=== PATIENT | female | born 1960 ===

== ENCOUNTER 2016-03-25 10:40 | Emergency (ER) | payer OTHER ==
--- NOTE | 2016-03-25 12:53 | DIAGNOSTIC IMAGING REPORT ---
PROCEDURE: XR CHEST 2 VIEW INDICATION: COUGH, initial encounter TECHNIQUE: PA and lateral view. COMPARISON: Chest x-ray 06/22/2009 FINDINGS: Small left basilar infiltrate/atelectasis. Right lung is clear. Cardiovascular structures are normal. Hiatal hernia. Bony thorax is unremarkable. IMPRESSION: 1. Small left basilar infiltrate/atelectasis 2. Hiatal hernia
--- NOTE | 2016-03-25 14:41 | ED NURSING NOTES ---
Clinical Report - Nurses [place] [address] [place] [address] 03/25/2016 10:41 [id number] Triage time 10:58. Acuity: LEVEL 3. Chief Complaint: COUGH. Alert. LAURIE COMA SCORE: Laurie Coma Scale: 15- eyes open spontaneously (4); best verbal response- oriented x 4 (5); best motor response- obeys commands (6). --11:33 Cami Nicholas R.N. 10:58 03/25/16. BP: 119/50. HR: 91. RR: 18. O2 saturation: 90% on room air. Temp: 97.3 F (oral). Pain level now: cannot qualify. --11:33 Cami Nicholas R.N. Weight: 113.3 kg estimated. Height/Length: 64 inches Estimated. BMI: 42.9. --11:12 Cami Nicholas R.N. Medications HydrOXYzine HCl Oral (Tablet 25 mg), as needed. --10:59 Cami Nicholas R.N. Lisinopril Oral (Tablet 2.5 mg) 2 tablets, daily. --13:39 Cami Nicholas R.N. Carvedilol 3.125 mg, 2x a day. --13:40 Cami Nicholas R.N. Eplerenone Oral (Tablet 25 mg) 1/2 tablet, daily. --13:40 Cami Nicholas R.N. Pantoprazole Sodium Oral 40 mg, daily. --13:41 Cami Nicholas R.N. Buprenorphine-Naloxon 8-2 mg, daily (dissolve 2 tabs). --13:43 Cami Nicholas R.N. PredniSONE Oral (Tablet 10 mg) 4 tabs, QOD. --13:44 Cami Nicholas R.N. Gabapentin Oral 100 mg, 3x a day. --13:45 Cami Nicholas R.N. Fluticasone Furoate Nasal 50 mcg, daily. --13:47 Cami Nicholas R.N. Citalopram Hydrobromide Oral (Tablet 20 mg), daily. --13:48 Cami Nicholas R.N. Capsaicin External, qid. --13:48 Cami Nicholas R.N. The following entry was struck by Cami Nicholas R.N., 13:50 (03/25/16) Reason - other(not on pharmacy list). <<STRICKEN ENTRY-- Albuterol Sulfate Oral. --10:59 Cami Nicholas R.N. --END STRIKE>> The following entry was struck by Cami Nicholas R.N., 13:50 (03/25/16) Reason - other(not on pharmacy list). <<STRICKEN ENTRY-- Advair HFA Inhalation. --10:59 Cami Nicholas R.N. --END STRIKE>> The following entry was struck by Cami Nicholas R.N., 13:50 (03/25/16) Reason - other(not on pharmacy list). <<STRICKEN ENTRY-- Vitamin D Oral. --10:59 Cami Nicholas R.N. --END STRIKE>> The following entry was struck by Cami Nicholas R.N., 13:49 (03/25/16) Reason - other. <<STRICKEN ENTRY-- Suboxone Sublingual 16 mg. --10:59 Cami Nicholas R.N. --END STRIKE>> The following entry was struck by Cami Nicholas R.N., 13:49 (03/25/16) Reason - other. <<STRICKEN ENTRY-- "joint pills". --10:59 Cami Nicholas R.N. --END STRIKE>> The following entry was struck and corrected by Cami Nicholas R.N., 13:48 (03/25/16) Reason for correction - other(correction). <<STRICKEN ENTRY-- HydrOXYzine HCl Oral. --10:59 Cami Nicholas R.N. --END STRIKE>> The following entry was struck by Cami Nicholas R.N., 13:46 (03/25/16) Reason - other. <<STRICKEN ENTRY-- Flonase Nasal. --10:59 Cami Nicholas R.N. --END STRIKE>> The following entry was struck by Cami Nicholas R.N., 13:45 (03/25/16) Reason - other. <<STRICKEN ENTRY-- CeleXA Oral. --10:59 Cami Nicholas R.N. --END STRIKE>> The following entry was struck by Cami Nicholas R.N., 13:42 (03/25/16) Reason - other. <<STRICKEN ENTRY-- Protonix Oral. --10:59 Cami Nicholas R.N. --END STRIKE>>. Allergies Amoxicillin. --10:59 Cami Nicholas R.N. History Arrived by private vehicle. Historian: patient. Accompanied by family. Primary physician (Agusto). Onset. (about 2 weeks). ( states she needs to go to detox but had to come to the hospital first). She has had a cough productive of thick, yellow sputum. SOCIAL HX: Former smoker (no). Alcohol use. (stopped but relapsed 2 weeks ago). FALL RISK ASSESSMENT: Fall risk assessment completed. No fall risk identified. FUNCTIONAL ASSESSMENT: Functional assessment: no impairments noted. LEARNING NEEDS ASSESSMENT: The learning needs assessment revealed no barriers. --11:33 Cami Nicholas R.N. PROBLEMS: Sebaceous Cyst. Asthma. Cholecystitis. Abdominal Pain. Diabetes Mellitus. Gallstone(s). Immunizations. LNMP - Last Normal Menstrual Period. GI Bleeding. Gastritis. Ulcers. Alcoholism. Pancreatitis. --11:01 Cami Nicholas R.N. ADDITIONAL SURGERIES: Appendectomy. L knee. Leg. Pancreatic surgery. --11:01 Cami Nicholas R.N. Assessment GENERAL / NEURO / PSYCH: The patient is awake and alert and is oriented and hostile. She appears anxious and agitated and has poor eye contact. ( crying out that she doesn't want to be here, coughed and spit the phlegm in her hand). RESPIRATORY: Mild respiratory distress. Cough productive of thick, yellow sputum. SKIN: Skin is warm and dry. --11:33 Cami Nicholas R.N. Interventions ID band on patient. To treatment room. --11:33 Cami Nicholas R.N. PHYSICAL ASSESSMENT 11:34 03/25/16. To room via wheelchair. Patient gowned. GENERAL / NEURO / PSYCH: The patient is awake and alert and is oriented and hostile. She appears anxious and agitated and has poor eye contact. RESPIRATORY: Mild respiratory distress. Cough productive of copious amounts of thick, yellow sputum. SKIN: Skin is warm and dry. --11:34 Cami Nicholas R.N. NURSING PROGRESS NOTES 11:34 03/25/16. Pulse oximeter and NIBP monitor placed on patient. Patient gowned. Head of bed elevated. Call light placed in reach. Side rails up x 1. Bed placed in lowest position. Brakes of bed on. --11:34 Cami Nicholas R.N. 11:34 caregiver is upset because the [place] told them to come to [facility] to get the pt medically cleared and then we would refer her to the detox place her in [place] and get her into it. --11:36 Cami Nicholas R.N. 13:55 03/25/2016 ALBUTEROL NEB W ATROVENT Neb TX Nebulizer 1 unit dose given. Given by the respiratory therapist. Allergies verified and confirmed 5 rights. --14:20 Ludin Fitch R.N. 14:15 03/25/2016 Site #1 started via IV in the left upper arm with an 20g angiocath, with aseptic technique and good blood return; one attempt. Blood drawn: rainbow set. Labeled in the presence of the patient and sent to the lab. Saline lock flushed with 10 mL saline. --14:32 Ludin Fitch R.N. 14:15 03/25/2016 Started bag #1 1000 mL IV Fluids IV NS (Saline); at 1000 mL/hr over 60 minute(s) via site #1. Allergies verified and confirmed 5 rights. IV patency established. IV site checked: no pain, redness, or swelling. IV flushed thoroughly pre- and post-medication administration. --14:34 Ludin Fitch R.N. 14:18 03/25/2016 Ceftriaxone IM 1 gm given. Given in the left ventral gluteus. Allergies verified and confirmed 5 rights. --14:18 Ludin Fitch R.N. 14:30 03/25/2016 Toradol IVP 30 mg given over 2 minute(s) via site #1. Allergies verified and confirmed 5 rights. IV patency established. IV site checked: no pain, redness, or swelling. IV flushed thoroughly pre- and post-medication administration. IVP given by RN. --14:40 Ludin Fitch R.N. 15:00 03/25/2016 Zofran (Ondansetron HCl) IVP 4 mg given over 2 minute(s) via site #1. Allergies verified and confirmed 5 rights. IV patency established. IV site checked: no pain, redness, or swelling. IV flushed thoroughly pre- and post-medication administration. IVP given by RN. --21:10 Ludin Fitch R.N. 15:03/25/2016 Site #1 removed upon discharge. Catheter intact. Manual pressure, bandaid and bandage applied. --21:12 Ludin Fitch R.N. 15:15 03/25/2016 IV Fluids IV NS Discontinued: bag #1 infused. Total amount infused: 1000 mL. IV patency established. IV site checked: no pain, redness, or swelling. IV flushed thoroughly. --21:11 Ludin Fitch R.N. 12:15 03/25/16. BP: 112/48. HR: 90. RR: 16. O2 saturation: 98% on room air. Pain level now: 06/26. --21:14 Ludin Fitch R.N. 13:30 03/25/16. BP: 98/59. HR: 100. RR: 16. O2 saturation: 97% on room air. --21:15 Ludin Fitch R.N. DISPOSITION / DISCHARGE 15:03/25/16. BP: 105/51. HR: 97. RR: 16. O2 saturation: 98% on room air. Temp: 98.9 F. Pain level now: 03/28. Additional comments: Generalized discomfort. --21:06 Ludin Fitch R.N. Departure time: 1525. --21:06 Ludin Fitch R.N. 15:25. Condition at departure: improved. No learning barriers present. Discharge instructions provided and reviewed with the patient. Reviewed medication(s) (prescription given to pt). Reviewed referral to family practice for followup. Patient and family verbalized understanding. Written instructions provided in Turkmen. The patient was discharged by the nurse practitioner. She was discharged home and accompanied by fire suppression captain. She left the Emergency Department ambulatory and via private vehicle. Driver'S License Examiner driving. --21:07 Ludin Fitch R.N. Locked/Released at 03/25/2016 21:16 by Ludin Fitch R.N.
--- NOTE | 2016-03-25 14:41 | ED CLINICAL REPORT ---
Clinical Report - Physicians/Mid Levels [facility] [address] [place] [address] 03/25/2016 10:41 [id number] Time Seen: 12:16; initial patient contact, initial documentation, patient care assumed. Arrived- By private vehicle. Historian- patient. HISTORY OF PRESENT ILLNESS Chief Complaint: COUGH. This started about 2 - 3 weeks ago and is still present. The illness is described as moderate. The patient has had thick, yellow sputum, a cough and mild difficulty breathing . The patient has also had wheezing. No fever, sore throat, nasal congestion or discharge or sinus drainage. Additional history - No known contact with a sick individual. No recent travel. Similar symptoms previously: Recent medical care: The patient was seen recently in a clinic. ( went to [facility], having issues the last few with bad asthma, not getting better). REVIEW OF SYSTEMS No vomiting or diarrhea. All systems otherwise negative, except as recorded above. PAST HISTORY See nurses notes. PROBLEMS: Sebaceous Cyst. Asthma. Cholecystitis. Abdominal Pain. Diabetes Mellitus. Gallstone(s). Immunizations. LNMP - Last Normal Menstrual Period. GI Bleeding. Gastritis. Ulcers. Alcoholism. Pancreatitis. --11:01 Cami Nicholas R.N. ADDITIONAL SURGERIES: Appendectomy. L knee. Leg. Pancreatic surgery. --11:01 Cami Nicholas R.N. SOCIAL HISTORY Smoker- current status unknown. Alcohol use. Patient is a longstanding alcoholic. Not exposed to second-hand smoke at home. No recent travel. Is a local resident. FAMILY HISTORY Negative. ADDITIONAL NOTES The nursing notes have been reviewed with agreement regarding the chief complaint, HPI, ROS, PMH and patient medications and allergies. PHYSICAL EXAM Vital Signs: 03/25/2016 10:58 BP: 119/50. HR: 91. RR: 18. O2 saturation: 90%. Temp: 97.3 F. Have been reviewed as abnormal and appear to be correct. Heart rate normal. Respiratory rate normal. Temperature normal. Oxygen saturation low. Appearance: Alert. No acute distress. (pt under the influence). Eyes: Pupils equal, round and reactive to light. Eyes normal inspection. ENT: Ears normal. Nose normal. Pharynx normal. Uvula midline. Neck: Normal inspection. Neck supple. CVS: Normal heart rate and rhythm. Heart sounds normal. Pulses normal. Respiratory: No respiratory distress. Breath sounds abnormal. Expiratory and inspiratory bilateral wheezes diffusely. Mild rales present in the bases bilaterally. Back: Normal inspection. Skin: Skin warm and dry. Normal skin color. No rash. Normal skin turgor. Extremities: Extremities exhibit normal ROM. No lower extremity edema. Neuro: Oriented X 3. No motor deficit. No sensory deficit. LABS, X-RAYS, AND EKG Chest X-ray: Normal Chest X-Ray. (IMPRESSION: 1. Small left basilar infiltrate/atelectasis 2. Hiatal hernia Electronically Final signed by:Caleb Castañeda MD 03/25/2016 12:52:58 PM). Interpretation time: 12:59. Laboratory Tests: CBC w Diff: (RAISA: 03/25/2016 13:20) ( MsgRcvd 03/25/2016 13:32) Final results Test Result Flag Units (Reference) WHITE BLOOD COUNT 12.4 H K/uL (4.5-11.5) RED BLOOD COUNT 3.78 L M/uL (4.00-5.20) HEMOGLOBIN 11.0 L gm/dL (12.0-16.0) HEMATOCRIT 33.2 L % (36.0-46.0) MEAN CELL VOLUME 88 fL (80-100) MEAN CORPUSCULAR HGB 29 pg (26-34) MEAN CORPUSCULAR HGB CONC 33 g/dL (31-37) RED CELL DISTRIBUTION WIDTH 16.4 H % (11.6-14.8) PLATELET COUNT 354 K/uL (150-400) NEUTROPHIL % 81.0 H % (50-75) LYMPH % 15.2 L % (25-40) MONO % 3.1 % (3-14) EOSINOPHIL % 0.3 % (0-4) BASOPHIL % 0.4 % (0-2) BMP: (RAISA: 03/25/2016 13:20) ( MsgRcvd 03/25/2016 13:45) Final results Test Result Flag Units (Reference) GLUCOSE 230 H mg/dL (70-110) BUN 6 L mg/dL (7-18) CREATININE 1.0 mg/dL (0.6-1.3) Estimated GFR >60 mL/min Estimated GFR- >60 mL/min Note: Persistent reduction over 3 months in eGFR<60 mL/min/1.73 m2 defines CKD. Patients with eGFR values>=60 mL/min/1.73 m2 may also have CKD if evidence ofpersistent proteinuria. Additional information may be foundat www.[email or web address].org. SODIUM 129 L mmol/L (136-145) POTASSIUM 4.0 mmol/L (3.5-5.1) CHLORIDE 97 L mmol/L (98-107) CARBON DIOXIDE 23 mmol/L (21-32) CALCIUM 7.8 L mg/dL (8.5-10.1) ETHYL ALCOHOL 258 H mg/dL (3-10) . PROGRESS AND PROCEDURES Course of Care: 1320. neb tx done, B breath sounds with mild insp wheezes heard thruout, PO96%ra lab at bedside 14:09 03/25/16. stopped in hallway twice with family qtns, just stopped again stating pt is going to leave and she has not gotten her shot yet. Differential Diagnosis: Other possible considerations: uri, viral illness, bronchitis, pneumonia, copd, asthma. Above considerations are based on history and physical exam. Differential diagnosis was discussed with patient. Disposition: Discharged home in good and improved condition (14:41). Condition: good and stable. CLINICAL IMPRESSION Bacterial pneumonia. Vital signs recorded and reviewed; empiric antibiotics given in the ED and prescribed. No hypoxemia, respiratory failure or sepsis. Uncomplicated alcohol intoxication with alcohol dependence. Mild hyponatremia INSTRUCTIONS Alternate Tylenol (Acetaminophen) and Motrin (Ibuprofen) for fever, temperature greater than 101 degrees orally. Take according to label instructions. Drink plenty of fluids for the next 24 hours until better. Warnings: GENERAL WARNINGS: Return or contact your physician immediately if your condition worsens or changes unexpectedly, if not improving as expected, or if other problems arise. Specifically return if problem worsens. Prescription Medications: Zithromax 250 mg tablets: take 2 orally today, followed by 1 daily for the next 4 days. No refills. Substitution is permissible. Follow-up: Follow up with your doctor in about three days even if well. Call for an appointment. Summary of care provided to patient. Understanding of the discharge instructions verbalized by patient. (Electronically signed by Gabby Taveras A.R.N.P. 03/25/2016 23:57)
--- NOTE | 2016-03-25 14:41 | ED NURSING NOTES ---
Clinical Report - Nurses [place] [address] [place] [address] 03/25/2016 10:41 [id number] Triage time 10:58. Acuity: LEVEL 3. Chief Complaint: COUGH. Alert. LAURIE COMA SCORE: Laurie Coma Scale: 15- eyes open spontaneously (4); best verbal response- oriented x 4 (5); best motor response- obeys commands (6). --11:33 Cami Nicholas R.N. 10:58 03/25/16. BP: 119/50. HR: 91. RR: 18. O2 saturation: 90% on room air. Temp: 97.3 F (oral). Pain level now: cannot qualify. --11:33 Cami Nicholas R.N. Weight: 113.3 kg estimated. Height/Length: 64 inches Estimated. BMI: 42.9. --11:12 Cami Nicholas R.N. Medications HydrOXYzine HCl Oral (Tablet 25 mg), as needed. --10:59 Cami Nicholas R.N. Lisinopril Oral (Tablet 2.5 mg) 2 tablets, daily. --13:39 Cami Nicholas R.N. Carvedilol 3.125 mg, 2x a day. --13:40 Cami Nicholas R.N. Eplerenone Oral (Tablet 25 mg) 1/2 tablet, daily. --13:40 Cami Nicholas R.N. Pantoprazole Sodium Oral 40 mg, daily. --13:41 Cami Nicholas R.N. Buprenorphine-Naloxon 8-2 mg, daily (dissolve 2 tabs). --13:43 Cami Nicholas R.N. PredniSONE Oral (Tablet 10 mg) 4 tabs, QOD. --13:44 Cami Nicholas R.N. Gabapentin Oral 100 mg, 3x a day. --13:45 Cami Nicholas R.N. Fluticasone Furoate Nasal 50 mcg, daily. --13:47 Cami Nicholas R.N. Citalopram Hydrobromide Oral (Tablet 20 mg), daily. --13:48 Cami Nicholas R.N. Capsaicin External, qid. --13:48 Cami Nicholas R.N. The following entry was struck by Cami Nicholas R.N., 13:50 (03/25/16) Reason - other(not on pharmacy list). <<STRICKEN ENTRY-- Albuterol Sulfate Oral. --10:59 Cami Nicholas R.N. --END STRIKE>> The following entry was struck by Cami Nicholas R.N., 13:50 (03/25/16) Reason - other(not on pharmacy list). <<STRICKEN ENTRY-- Advair HFA Inhalation. --10:59 Cami Nicholas R.N. --END STRIKE>> The following entry was struck by Cami Nicholas R.N., 13:50 (03/25/16) Reason - other(not on pharmacy list). <<STRICKEN ENTRY-- Vitamin D Oral. --10:59 Cami Nicholas R.N. --END STRIKE>> The following entry was struck by Cami Nicholas R.N., 13:49 (03/25/16) Reason - other. <<STRICKEN ENTRY-- Suboxone Sublingual 16 mg. --10:59 Cami Nicholas R.N. --END STRIKE>> The following entry was struck by Cami Nicholas R.N., 13:49 (03/25/16) Reason - other. <<STRICKEN ENTRY-- "joint pills". --10:59 Cami Nicholas R.N. --END STRIKE>> The following entry was struck and corrected by Cami Nicholas R.N., 13:48 (03/25/16) Reason for correction - other(correction). <<STRICKEN ENTRY-- HydrOXYzine HCl Oral. --10:59 Cami Nicholas R.N. --END STRIKE>> The following entry was struck by Cami Nicholas R.N., 13:46 (03/25/16) Reason - other. <<STRICKEN ENTRY-- Flonase Nasal. --10:59 Cami Nicholas R.N. --END STRIKE>> The following entry was struck by Cami Nicholas R.N., 13:45 (03/25/16) Reason - other. <<STRICKEN ENTRY-- CeleXA Oral. --10:59 Cami Nicholas R.N. --END STRIKE>> The following entry was struck by Cami Nicholas R.N., 13:42 (03/25/16) Reason - other. <<STRICKEN ENTRY-- Protonix Oral. --10:59 Cami Nicholas R.N. --END STRIKE>>. Allergies Amoxicillin. --10:59 Cami Nicholas R.N. History Arrived by private vehicle. Historian: patient. Accompanied by family. Primary physician (Agusto). Onset. (about 2 weeks). ( states she needs to go to detox but had to come to the hospital first). She has had a cough productive of thick, yellow sputum. SOCIAL HX: Former smoker (no). Alcohol use. (stopped but relapsed 2 weeks ago). FALL RISK ASSESSMENT: Fall risk assessment completed. No fall risk identified. FUNCTIONAL ASSESSMENT: Functional assessment: no impairments noted. LEARNING NEEDS ASSESSMENT: The learning needs assessment revealed no barriers. --11:33 Cami Nicholas R.N. PROBLEMS: Sebaceous Cyst. Asthma. Cholecystitis. Abdominal Pain. Diabetes Mellitus. Gallstone(s). Immunizations. LNMP - Last Normal Menstrual Period. GI Bleeding. Gastritis. Ulcers. Alcoholism. Pancreatitis. --11:01 Cami Nicholas R.N. ADDITIONAL SURGERIES: Appendectomy. L knee. Leg. Pancreatic surgery. --11:01 Cami Nicholas R.N. Assessment GENERAL / NEURO / PSYCH: The patient is awake and alert and is oriented and hostile. She appears anxious and agitated and has poor eye contact. ( crying out that she doesn't want to be here, coughed and spit the phlegm in her hand). RESPIRATORY: Mild respiratory distress. Cough productive of thick, yellow sputum. SKIN: Skin is warm and dry. --11:33 Cami Nicholas R.N. Interventions ID band on patient. To treatment room. --11:33 aCmi Nicholas R.N. PHYSICAL ASSESSMENT 11:34 03/25/16. To room via wheelchair. Patient gowned. GENERAL / NEURO / PSYCH: The patient is awake and alert and is oriented and hostile. She appears anxious and agitated and has poor eye contact. RESPIRATORY: Mild respiratory distress. Cough productive of copious amounts of thick, yellow sputum. SKIN: Skin is warm and dry. --11:34 Cami Nicholas R.N. NURSING PROGRESS NOTES 11:34 03/25/16. Pulse oximeter and NIBP monitor placed on patient. Patient gowned. Head of bed elevated. Call light placed in reach. Side rails up x 1. Bed placed in lowest position. Brakes of bed on. --11:34 Cami Nicholas R.N. 11:34 caregiver is upset because the kashia told them to come to [facility] to get the pt medically cleared and then we would refer her to the detox place her in [place] and get her into it. --11:36 Cami Nicholas R.N. 13:55 03/25/2016 ALBUTEROL NEB W ATROVENT Neb TX Nebulizer 1 unit dose given. Given by the respiratory therapist. Allergies verified and confirmed 5 rights. --14:20 Ludin Fitch R.N. 14:15 03/25/2016 Site #1 started via IV in the left upper arm with an 20g angiocath, with aseptic technique and good blood return; one attempt. Blood drawn: rainbow set. Labeled in the presence of the patient and sent to the lab. Saline lock flushed with 10 mL saline. --14:32 Ludin Fitch R.N. 14:15 03/25/2016 Started bag #1 1000 mL IV Fluids IV NS (Saline); at 1000 mL/hr over 60 minute(s) via site #1. Allergies verified and confirmed 5 rights. IV patency established. IV site checked: no pain, redness, or swelling. IV flushed thoroughly pre- and post-medication administration. --14:34 Ludin Fitch R.N. 14:18 03/25/2016 Ceftriaxone IM 1 gm given. Given in the left ventral gluteus. Allergies verified and confirmed 5 rights. --14:18 Ludin Fitch R.N. 14:30 03/25/2016 Toradol IVP 30 mg given over 2 minute(s) via site #1. Allergies verified and confirmed 5 rights. IV patency established. IV site checked: no pain, redness, or swelling. IV flushed thoroughly pre- and post-medication administration. IVP given by RN. --14:40 Ludin Fitch R.N. 15:00 03/25/2016 Zofran (Ondansetron HCl) IVP 4 mg given over 2 minute(s) via site #1. Allergies verified and confirmed 5 rights. IV patency established. IV site checked: no pain, redness, or swelling. IV flushed thoroughly pre- and post-medication administration. IVP given by RN. --21:10 Ludin Fitch R.N. 15:03/25/2016 Site #1 removed upon discharge. Catheter intact. Manual pressure, bandaid and bandage applied. --21:12 Ludin Fitch R.N. 15:15 03/25/2016 IV Fluids IV NS Discontinued: bag #1 infused. Total amount infused: 1000 mL. IV patency established. IV site checked: no pain, redness, or swelling. IV flushed thoroughly. --21:11 Ludin Fitch R.N. 12:15 03/25/16. BP: 112/48. HR: 90. RR: 16. O2 saturation: 98% on room air. Pain level now: 06/26. --21:14 Ludin Fitch R.N. 13:30 03/25/16. BP: 98/59. HR: 100. RR: 16. O2 saturation: 97% on room air. --21:15 Ludin Fitch R.N. DISPOSITION / DISCHARGE 15:03/25/16. BP: 105/51. HR: 97. RR: 16. O2 saturation: 98% on room air. Temp: 98.9 F. Pain level now: 03/28. Additional comments: Generalized discomfort. --21:06 Ludin Fitch R.N. Departure time: 1525. --21:06 Ludin Fitch R.N. 15:25. Condition at departure: improved. No learning barriers present. Discharge instructions provided and reviewed with the patient. Reviewed medication(s) (prescription given to pt). Reviewed referral to family practice for followup. Patient and family verbalized understanding. Written instructions provided in Telugu. The patient was discharged by the nurse practitioner. She was discharged home and accompanied by transfer controller. She left the Emergency Department ambulatory and via private vehicle. [employer] driving. --21:07 Ludin Fitch R.N. Locked/Released at 03/25/2016 21:16 by Ludin Fitch R.N.
--- NOTE | 2016-03-25 14:41 | ED ORDER SUMMARY ---
..... Patient: CLAY SALOMON OrderSheet [facility] VisitID: [id number] [place] [address] 55y, F Registration Date/Time: 03/25/2016 ORDER SHEET Weight: 113.3 kg (estimated) Allergies: Amoxicillin GENERAL ORDERS: Chest 2V Urgent (12:31 03/25/2016 HBivens A.R.N.P.) (Ack 12:33 TBergley) (13:10 Cheryl) CBC w Diff Urgent (12:03/25/2016 HBivens A.R.N.P.) (Ack 12:33 TBergley) (13:21 TBergley) BMP Urgent (12:03/25/2016 HBivens A.R.N.P.) (Ack 12:33 TBergley) (13:21 TBergley) Ethyl Alcohol Urgent (12:03/25/2016 HBivens A.R.N.P.) (Ack 12:33 TBergley) (13:21 TBergley) MEDICATION ORDERS: Albuterol Neb w Atrovent 1 unit dose (NOW) (12:31 03/25/2016 HBivens A.R.N.P.) (14:20 JRomanelli R.N.) Ceftriaxone IM 1 gm (NOW) (13:03 03/25/2016 HBivens A.R.N.P.) (14:18 JRomanelli R.N.) IV FLUIDS: IV NS : initial bolus 1000 mL (1000 mL/hr), then none - for X1 (NOW) (13:50 03/25/2016 HBivens A.R.N.P.) (14:34 JRomanelli R.N.) IV Saline Lock (13:50 03/25/2016 HBivens A.R.N.P.) (14:32 JRomanelli R.N.) Toradol IV 30 mg (NOW) (14:39 03/25/2016 JRomanelli R.N. verbal order read back to HBivens A.R.N.P.) (14:40 JRomanelli R.N.) Zofran IV 4 mg (NOW) (21:08 03/25/2016 Paula Treadwell verbal order read back to Julia PeckR.NAdrielPAdriel) (21:10 Paula Treadwell) ORDER SHEET NOTES: [Electronically signed by Ludin Fitch R.N. (21:16 03/25/2016)] [Electronically signed by Gabby TaverasNAdrielPAdriel (23:57 03/25/2016)] [Electronically locked/signed by Ludin Fitch R.N. (21:16 03/25/2016)]
--- NOTE | 2016-03-25 14:41 | ED ORDER SUMMARY ---
..... Patient: CLAY SALOMON OrderSheet [facility] VisitID: [id number] [place] [address] 55y, F Registration Date/Time: 03/25/2016 ORDER SHEET Weight: 113.3 kg (estimated) Allergies: Amoxicillin GENERAL ORDERS: Chest 2V Urgent (12:31 03/25/2016 HBivens A.R.N.P.) (Ack 12:33 TBergley) (13:10 Cheryl) CBC w Diff Urgent (12:03/25/2016 HBivens A.R.N.P.) (Ack 12:33 TBergley) (13:21 TBergley) BMP Urgent (12:03/25/2016 HBivens A.R.N.P.) (Ack 12:33 TBergley) (13:21 TBergley) Ethyl Alcohol Urgent (12:03/25/2016 HBivens A.R.N.P.) (Ack 12:33 TBergley) (13:21 TBergley) MEDICATION ORDERS: Albuterol Neb w Atrovent 1 unit dose (NOW) (12:31 03/25/2016 HBivens A.R.N.P.) (14:20 JRomanelli R.N.) Ceftriaxone IM 1 gm (NOW) (13:03 03/25/2016 HBivens A.R.N.P.) (14:18 JRomanelli R.N.) IV FLUIDS: IV NS : initial bolus 1000 mL (1000 mL/hr), then none - for X1 (NOW) (13:50 03/25/2016 HBivens A.R.N.P.) (14:34 JRomanelli R.N.) IV Saline Lock (13:50 03/25/2016 HBivens A.R.N.P.) (14:32 JRomanelli R.N.) Toradol IV 30 mg (NOW) (14:39 03/25/2016 JRomanelli R.N. verbal order read back to HBivens A.R.N.P.) (14:40 JRomanelli R.N.) Zofran IV 4 mg (NOW) (21:08 03/25/2016 Paula Treadwell verbal order read back to Julia PeckR.NAdrielPAdriel) (21:10 Paula Treadwell) ORDER SHEET NOTES: [Electronically signed by Ludin Fitch R.N. (21:16 03/25/2016)] [Electronically signed by Gabby TaverasNAdrielPAdriel (23:57 03/25/2016)] [Electronically locked/signed by Ludin Fitch R.N. (21:16 03/25/2016)]
--- NOTE | 2016-03-25 23:58 | ED MED RECONCILIATION SUMMARY ---
Patient: CLAY SALOMON Medication Reconciliation Report [facility] VisitID: [id number] [address] [place] [address] 55y, F Registration Date/Time: 03/25/2016 Weight: 113.3 kg Height/Length: 64 in. BMI: 42.9 ALLERGIES: Amoxicillin The patient's Home Medications are listed below: THE FOLLOWING MEDICATIONS NEED TO BE RECONCILED: Buprenorphine-Naloxon 8-2 mg, daily, dissolve 2 tabs Capsaicin External, qid Carvedilol 3.125 mg, 2x a day Citalopram Hydrobromide Oral (20 mg), daily Eplerenone Oral (25 mg) 1/2 tablet, daily Fluticasone Furoate Nasal 50 mcg, daily Gabapentin Oral 100 mg, 3x a day HydrOXYzine HCl Oral (25 mg) Lisinopril Oral (2.5 mg) 2 tablets, daily Pantoprazole Sodium Oral 40 mg, daily PredniSONE Oral (10 mg) 4 tabs, QOD The source(s) of the original Home Medication information: Not obtained. The following Medications were given to the patient in the Emergency Department: Ceftriaxone [IM] IM 1 gm, administered: 03/25/2016 2:18:00 PM ALBUTEROL NEB W ATROVENT Neb TX 1 unit dose, administered: 03/25/2016 1:55:00 PM IV NS IV Fluids bolus 0, then 1000 mL/hr, administered: 03/25/2016 2:15:00 PM Toradol [IVP] IVP 30 mg, administered: 03/25/2016 2:30:00 PM Zofran [IVP] IVP 4 mg, administered: 03/25/2016 3:00:00 PM The following Medications were prescribed to the patient: Zithromax 250 mg tablets: take 2 orally today, followed by 1 daily for the next 4 days. No refills. Substitution is permissible. -- Gabby Taveras A.R.N.P.
--- NOTE | 2016-03-25 23:58 | ED MED RECONCILIATION SUMMARY ---
Patient: CLAY SALOMON Medication Reconciliation Report [facility] VisitID: [id number] [address] [place] [address] 55y, F Registration Date/Time: 03/25/2016 Weight: 113.3 kg Height/Length: 64 in. BMI: 42.9 ALLERGIES: Amoxicillin The patient's Home Medications are listed below: THE FOLLOWING MEDICATIONS NEED TO BE RECONCILED: Buprenorphine-Naloxon 8-2 mg, daily, dissolve 2 tabs Capsaicin External, qid Carvedilol 3.125 mg, 2x a day Citalopram Hydrobromide Oral (20 mg), daily Eplerenone Oral (25 mg) 1/2 tablet, daily Fluticasone Furoate Nasal 50 mcg, daily Gabapentin Oral 100 mg, 3x a day HydrOXYzine HCl Oral (25 mg) Lisinopril Oral (2.5 mg) 2 tablets, daily Pantoprazole Sodium Oral 40 mg, daily PredniSONE Oral (10 mg) 4 tabs, QOD The source(s) of the original Home Medication information: Not obtained. The following Medications were given to the patient in the Emergency Department: Ceftriaxone [IM] IM 1 gm, administered: 03/25/2016 2:18:00 PM ALBUTEROL NEB W ATROVENT Neb TX 1 unit dose, administered: 03/25/2016 1:55:00 PM IV NS IV Fluids bolus 0, then 1000 mL/hr, administered: 03/25/2016 2:15:00 PM Toradol [IVP] IVP 30 mg, administered: 03/25/2016 2:30:00 PM Zofran [IVP] IVP 4 mg, administered: 03/25/2016 3:00:00 PM The following Medications were prescribed to the patient: Zithromax 250 mg tablets: take 2 orally today, followed by 1 daily for the next 4 days. No refills. Substitution is permissible. -- Gabby Taveras A.R.N.P.
--- NOTE | 2016-03-25 23:58 | ED MAR SUMMARY ---
..... Medication Administration Record [facility] [address] [place] [address] Patient: CLAY SALOMON Visit ID: [id number] 55y, F Weight: 113.3 kg Height/Length: 64 in BMI: 42.9 ALLERGIES: Amoxicillin Given 13:55 03/25/2016 Ludin Fitch R.N. Medication Administered: ALBUTEROL NEB W ATROVENT, Dose: 1 unit dose Nebulizer Neb TX. Medication Ordered: Albuterol Neb w Atrovent 1 unit dose (NOW). Start 14:15 03/25/2016 Ludin Fitch R.N., Stop 15:15 03/25/2016 Ludin Fitch R.N. Medication Administered: IV NS (SALINE), Dose: IV Fluids over 60 minute(s), Rate: 1000 mL/hr, Dispensed: 1000 mL bag, Site: #1 left upper arm. Medication Ordered: IV NS : initial bolus 1000 mL (1000 mL/hr), then none - for X1 (NOW). Given 14:18 03/25/2016 Ludin Fitch R.N. Medication Administered: CEFTRIAXONE [IM], Dose: 1 gm IM. Medication Ordered: Ceftriaxone IM 1 gm (NOW). Given 14:30 03/25/2016 Ludin Fitch R.N. Medication Administered: TORADOL [IVP], Dose: 30 mg IVP over 2 minute(s), Site: #1 left upper arm. Medication Ordered: Toradol IV 30 mg (NOW). Given 15:00 03/25/2016 Ludin Fitch R.N. Medication Administered: ZOFRAN [IVP] (ONDANSETRON HCL), Dose: 4 mg IVP over 2 minute(s), Site: #1 left upper arm. Medication Ordered: Zofran IV 4 mg (NOW).
--- NOTE | 2016-03-25 23:58 | ED DISCHARGE INSTRUCTIONS ---
Patient: CLAY SALOMON General Instructions [facility] VisitID: [id number] [place] [address] 55y, F Registration Date/Time: 03/25/2016 Bacterial pneumonia. Vital signs recorded and reviewed; empiric antibiotics given in the ED and prescribed. No hypoxemia, respiratory failure or sepsis. Uncomplicated alcohol intoxication with alcohol dependence. Mild hyponatremia INSTRUCTIONS Alternate Tylenol (Acetaminophen) and Motrin (Ibuprofen) for fever, temperature greater than 101 degrees orally. Take according to label instructions. Drink plenty of fluids for the next 24 hours until better. Warnings: GENERAL WARNINGS: Return or contact your physician immediately if your condition worsens or changes unexpectedly, if not improving as expected, or if other problems arise. Specifically return if problem worsens. Prescription Medications: Zithromax 250 mg tablets: take 2 orally today, followed by 1 daily for the next 4 days. No refills. Substitution is permissible. Follow-up: Follow up with your doctor in about three days even if well. Call for an appointment. Summary of care provided to patient. Understanding of the discharge instructions verbalized by patient. ADDITIONAL INFORMATION Pneumonia (Adult) Pneumonia is an infection deep within the lung, in the small air sacs (alveoli). It may be due to a virus or bacteria and is usually treated with an antibiotic. Severe cases require treatment in the hospital. Milder cases can be treated at home. Symptoms usually start to improve during the first2 days of treatment. Home Care: Rest at home for the first 23 days or until you feel stronger. When resuming activity, dont let yourself become overly tired. Avoid exposure to cigarette smoke (yours or others). You may use acetaminophen (Tylenol) or ibuprofen (Motrin, Advil) to control fever or pain, unless another medicine was prescribed. [NOTE: If you have chronic liver or kidney disease or ever had a stomach ulcer or GI bleeding, talk with your doctor before using these medicines.] (Aspirin should never be used in anyone under 18 years of age who is ill with a fever. It may cause severe liver damage.) Your appetite may be poor so a light diet is fine. Keep well hydrated by drinking 68 glasses of fluids per day (water, sport drinks such as Gatorade, sodas without caffeine, juices, tea, soup, etc.). This will help loosen secretions in the lung, making it easier for you to cough up the phlegm (sputum). If you also have heart or kidney disease, check with your doctor before you drink extra amounts of fluids. Finish all antibiotic medicine prescribed, even if you are feeling better after a few days. Follow Up with your doctor in the next 23 days (or as advised) to be sure you are responding properly to the medicine. [NOTE: If you are age 65 or older, or if you have chronic lung disease (asthma, emphysema or COPD), we recommendthe pneumococcal vaccination and a yearlyinfluenzavaccination(flu-shot) every . Ask your doctor about this.] Get Prompt Medical Attention if any of the following occur: Not getting better within the first 48 hours of treatment Increasing shortness of breath or rapid breathing (over 25 breaths/minute) Coughing up blood or increasing chest pain with breathing Fever of 100.4F (38C) oral or higher, not better with fever medication Increasing weakness, dizziness or fainting Increasing thirst or dry mouth Sinus pain, headache or a stiff neck Chest pain not caused by coughing Alcohol Intoxication Alcohol intoxication occurs when you drink alcohol faster than your liver can remove it from your system. Alcohol intoxication affects your judgment and coordination. Very high blood alcohol levels can cause coma, very slow breathing and even . If you drink alcohol every day, this may gradually cause permanent damage to your liver, brain, heart, pancreas and other organs. Alcohol use during may cause permanent damage to the growing baby. Home Care: Do not drink any more alcohol. DO NOT DRIVE until all effects of the alcohol have worn off. Get lots of rest over the next few days. Drink plenty of water and other non-alcoholic liquids. Try to eat regular meals. If you have been drinking heavily on a daily basis, you may go through alcohol withdrawl. This is also called the shakes or DTs. The usual symptoms last 3 to 4 days and may include nervousness, shakiness, nausea, sweating or sleeplessness. During this time, it is best that you stay with family or friends who can help and support you. You can also admit yourself to a residential detox program. If your symptoms are severe, contact your doctor for medicines to help. Follow Up: If alcohol is causing a problem in your life, these and other organizations can help you: Alcoholics Anonymous offers support through a self-help fellowship. There are no dues or fees. See the Yellow Pages and call for time and place of meetings. www.aa.org [place] offers support to families of alcohol users. 493.175.7595 www.[place].org [employer] [place] On Alcoholism And Drug Dependence 377-119-1715 www.ncadd.org There are also inpatient or residential alcohol detox programs. Check the Internet or phonebook Yellow Pages under Drug Abuse & Treatment Centers. Get Prompt Medical Attention if any of the following occur: there) Hyponatremia Hyponatremia means low sodium levels in the blood. This condition most often occurs after prolonged vomiting or diarrhea. It can also result from the use of diuretics (water pills) or drinking excess amounts of water. Mild hyponatremia causes no symptoms. It is only discovered with a blood test. As sodium levels in the blood decreases, symptoms begin to appear. This includes weakness, confusion, muscle cramping and seizures. Home Care: 1) Reduce your daily water intake until the problem is corrected. 2) If you have been taking diuretics, you may be asked to stop taking them for a short time. 3) If you are having symptoms of weakness or confusion, do not drive or operate dangerous machinery until symptoms resolve. Follow Up with your doctor for a repeat blood test within the next week unless told otherwise. Get Prompt Medical Attention if any of the following occur: -- Increasing weakness -- Dizziness -- Irregular heartbeat, extra beats or very fast heart rate -- Fainting spell Fever Control (Adult) A fever is a natural reaction of the body to an illness. In most cases, the temperature itself is not harmful. It actually helps the body fight infections. A fever does not need to be treated unless you feel very uncomfortable. Home Care If you feel warm, check your temperature. If you feel very uncomfortable and your temperature is at or higher than 100.4F (38C) oral, you may take acetaminophen (Tylenol) every 4 to 6 hours. If you cant take or keep down oral medicine, ask your pharmacist for Tylenol suppositories, which you can get without a prescription. If the fever does not respond to acetaminophen within 1 hour, take ibuprofen (Advil or Motrin). If this works, keep taking the ibuprofen every 6 to 8 hours. Note: If you have chronic liver or kidney disease or ever had a stomach ulcer or GI bleeding, talk with your doctor before using these medications. If either medication alone does not keep the fever down, you may alternate the two medicines every 3 to 4 hours, only if your healthcare provider has instructed you to do so. For example, take Motrin then wait 3 hours, take Tylenol then wait 3 hours, take Motrin, and so on. Follow your healthcare providers instructions exactly. Clothing: Keep clothing light because excess body heat is lost through the skin. The fever will go up if you wear extra layers or wrap in blankets. Fluids: Fever causes the body to lose water through evaporation. Drink plenty of fluids such as water, juice, clear sodas, eedr ramesh, or lemonade. Do not use aspirin in anyone under 18 years of age who is ill with a fever. It can cause severe liver damage. Follow Up with your doctor or as advised by our staff if you do not get better after 48 hours. Get Prompt Medical Attention if any of the following occur: Fever does not get better after taking fever medication Fast or difficult breathing Earache, sinus pain, stiff or painful neck, headache, repeated diarrhea or vomiting You feel unusually irritable, drowsy, or confused A rash appears You feel weak or dizzy, or that you might faint Azithromycin Oral tablet What is this medicine? AZITHROMYCIN (az ith giancarloira JOSEPH sin) is a macrolide antibiotic. It is used to treat or prevent certain kinds of bacterial infections. It will not work for colds, flu, or other viral infections. How should I use this medicine? Take this medicine by mouth with a full glass of water. Follow the directions on the prescription label. The tablets can be taken with food or on an empty stomach. If the medicine upsets your stomach, take it with food. Take your medicine at regular intervals. Do not take your medicine more often than directed. Take all of your medicine as directed even if you think your are better. Do not skip doses or stop your medicine early. Talk to your imagery analyst regarding the use of this medicine in children. Special care may be needed. What side effects may I notice from receiving this medicine? Side effects that you should report to your doctor or health resident caregiver as soon as possible: allergic reactions like skin rash, itching or hives, swelling of the face, lips, or tongue confusion, nightmares or hallucinations dark urine difficulty breathing hearing loss irregular heartbeat or chest pain pain or difficulty passing urine redness, blistering, peeling or loosening of the skin, including inside the mouth white patches or sores in the mouth yellowing of the eyes or skin Side effects that usually do not require medical attention (report to your doctor or health resident caregiver if they continue or are bothersome): diarrhea dizziness, drowsiness headache stomach upset or vomiting tooth discoloration vaginal irritation What may interact with this medicine? Do not take this medicine with any of the following medications: lincomycin This medicine may also interact with the following medications: amiodarone antacids cyclosporine digoxin magnesium nelfinavir phenytoin warfarin What if I miss a dose? If you miss a dose, take it as soon as you can. If it is almost time for your next dose, take only that dose. Do not take double or extra doses. Where should I keep my medicine? Keep out of the reach of children. Store at room temperature between 15 and 30 degrees C (59 and 86 degrees F). Throw away any unused medicine after the expiration date. What should I tell my health care provider before I take this medicine? They need to know if you have any of these conditions: kidney disease liver disease irregular heartbeat or heart disease an unusual or allergic reaction to azithromycin, erythromycin, other macrolide antibiotics, foods, dyes, or preservatives or trying to get breast-feeding What should I watch for while using this medicine? Tell your doctor or health resident caregiver if your symptoms do not improve. Do not treat diarrhea with over the counter products. Contact your doctor if you have diarrhea that lasts more than 2 days or if it is severe and watery. This medicine can make you more sensitive to the sun. Keep out of the sun. If you cannot avoid being in the sun, wear protective clothing and use sunscreen. Do not use sun lamps or tanning beds/booths. You have been given the following additional information: Pneumonia (Adult) Alcohol Intoxication Hyponatremia Fever Control (Adult) Azithromycin Oral tablet (Electronically signed by Gabby Taveras A.R.N.P. 03/25/2016 23:57)
--- NOTE | 2016-03-25 23:58 | ED MAR SUMMARY ---
..... Medication Administration Record [facility] [address] [place] [address] Patient: CLAY SALOMON Visit ID: [id number] 55y, F Weight: 113.3 kg Height/Length: 64 in BMI: 42.9 ALLERGIES: Amoxicillin Given 13:55 03/25/2016 Ludin Fitch R.N. Medication Administered: ALBUTEROL NEB W ATROVENT, Dose: 1 unit dose Nebulizer Neb TX. Medication Ordered: Albuterol Neb w Atrovent 1 unit dose (NOW). Start 14:15 03/25/2016 Ludin Fitch R.N., Stop 15:15 03/25/2016 Ludin Fitch R.N. Medication Administered: IV NS (SALINE), Dose: IV Fluids over 60 minute(s), Rate: 1000 mL/hr, Dispensed: 1000 mL bag, Site: #1 left upper arm. Medication Ordered: IV NS : initial bolus 1000 mL (1000 mL/hr), then none - for X1 (NOW). Given 14:18 03/25/2016 Ludin Fitch R.N. Medication Administered: CEFTRIAXONE [IM], Dose: 1 gm IM. Medication Ordered: Ceftriaxone IM 1 gm (NOW). Given 14:30 03/25/2016 Ludin Fitch R.N. Medication Administered: TORADOL [IVP], Dose: 30 mg IVP over 2 minute(s), Site: #1 left upper arm. Medication Ordered: Toradol IV 30 mg (NOW). Given 15:00 03/25/2016 Ludin Fitch R.N. Medication Administered: ZOFRAN [IVP] (ONDANSETRON HCL), Dose: 4 mg IVP over 2 minute(s), Site: #1 left upper arm. Medication Ordered: Zofran IV 4 mg (NOW).
== END 2016-03-25 15:25 | disposition home or self-care (01) ==
LOC: ED SRH 10:40
DX: J15.9 Unspecified bacterial pneumonia (principal); F10.220 Alcohol dependence with intoxication, uncomplicated; E87.1 Hypo-osmolality and hyponatremia; E11.9 Type 2 diabetes mellitus without complications; Z79.899 Other long term (current) drug therapy; Z88.0 Allergy status to penicillin
CPT/HCPCS: 90047; 90074; 92010; 95059